=== PATIENT | female | born 1985 | race Caucasian/White ===

== ENCOUNTER 2021-03-15 15:57 | Emergency (ER) | payer BC ==
[2021-03-15 16:12] VITALS: BP 96/73; PULSE 87
--- NOTE | 2021-03-15 16:36 | EDM.PDOC ---
ED HPI GENERAL MEDICAL PROBLEM - General Chief Complaint: Fever Stated Complaint: COVID+ SOB FEVER Time Seen by Provider: 03/15/21 16:10 Source of Information: Reports: Patient, RN Notes Reviewed History Limitations: Reports: No Limitations - History of Present Illness INITIAL COMMENTS - FREE TEXT/NARRATIVE: Patient is a 35-year-old female presenting to the emergency department with complaints of fever with a known diagnosis of COVID-19. She reports that she developed symptoms of fever, loss of taste and smell, nausea, and sinus congestion on 07 March. She tested positive at that time for Covid. She has had no respiratory symptoms with the exception of some coughing which she states is caused by postnasal drip. She is denies any shortness of breath or chest pain. She states that she is "tired of dealing with a fever ". Reports T-max of 104, however she takes Tylenol and ibuprofen for fever does break. Last dose of ibuprofen, 400 mg was around noon today. She was found to be afebrile on triage. She reports that her fevers have been lower over the last couple days. T-max has been 102. She is currently breast-feeding. She did not receive the Covid vaccination. Treatments [employer]: Reports: NSAIDS - Related Data Allergies Allergy/AdvReac Type Severity Reaction Status Date / Time latex Allergy Itching Verified 03/15/21 16:12 Home Meds: Home Meds Magnesium 500 mg PO BEDTIME 07/25/20 [History] Pnv No.95/Ferrous Fum/Folic AC [ Tablet] 1 tab PO BEDTIME 07/25/20 [History] Past Medical History HEENT History: Reports: Impaired Vision Cardiovascular History: Reports: Heart Murmur FLOOR LAYER History: Reports: , Other (See Below) Other FLOOR LAYER History: D&C Psychiatric History: Reports: Depression, Other (See Below) Other Psychiatric History: depression Dermatologic History: Reports: Eczema - Infectious Disease History Infectious Disease History: Reports: Novel Coronavirus - Past Surgical History HEENT Surgical History: Reports: Oral Surgery Social & Family History - Family History HEENT: Reports: None Cardiac: Reports: Heart Murmur, Other (See Below) Other Cardiac Family History: heart disease Respiratory: Reports: None GI: Reports: None : Reports: None OBGYN: Reports: Musculoskeletal: Reports: None Neurological: Reports: Alzheimers Disease Psychiatric: Reports: None Endocrine/Metabolic: Reports: None Hematologic: Reports: None Immunologic: Reports: None Dermatologic: Reports: None Oncologic: Reports: Breast, Leukemia - Tobacco Use Tobacco Use Status *Q: Former Tobacco User Used Tobacco, but Quit: Yes Month/Year Tobacco Last Used: 07/2014 - Caffeine Use Caffeine Use: Reports: None - Recreational Drug Use Recreational Drug Use: No ED ROS GENERAL - Review of Systems Review Of Systems: See Below Constitutional: Reports: Fever, Chills, Decreased Appetite HEENT: Reports: Sinus Problem. Denies: Throat Pain Respiratory: Reports: No Symptoms. Denies: Shortness of Breath, Pleuritic Chest Pain, Cough Cardiovascular: Reports: No Symptoms. Denies: Lightheadedness Endocrine: Reports: No Symptoms GI/Abdominal: Reports: Nausea. Denies: Abdominal Pain, Diarrhea, Vomiting : Reports: No Symptoms Musculoskeletal: Reports: Other (generalized body aches) Skin: Reports: No Symptoms Neurological: Reports: No Symptoms. Denies: Confusion, Dizziness Psychiatric: Reports: No Symptoms Hematologic/Lymphatic: Reports: No Symptoms Immunologic: Reports: No Symptoms ED EXAM, GENERAL - Physical Exam Exam: See Below Exam Limited By: No Limitations General Appearance: Alert, WD/WN, No Apparent Distress Respiratory/Chest: No Respiratory Distress, Lungs Clear, Normal Breath Sounds, No Accessory Muscle Use, Chest Non-Tender Cardiovascular: Normal Peripheral Pulses, Regular Rate, Rhythm, No Edema, No Gallop, No JVD, No Murmur, No Rub GI/Abdominal: Normal Bowel Sounds, Soft, Non-Tender, No Organomegaly, No Distention, No Abnormal Bruit, No Mass Neurological: Alert, Oriented, CN II-XII Intact, Normal Cognition, Normal Gait, Normal Reflexes, No Motor/Sensory Deficits Psychiatric: Normal Affect, Normal Mood Skin Exam: Warm, Dry, Intact, Normal Color, No Rash Course - Vital Signs Last Recorded V/S: Last Vital Signs Temp 98.8 F 03/15/21 16:08 Pulse 87 03/15/21 16:08 Resp 16 03/15/21 16:08 BP 96/73 03/15/21 16:08 Pulse Ox 97 03/15/21 16:08 - Orders/Labs/Meds Orders: Active Orders 24 hr Category Date Time Status Chest 1V Frontal [CR] Stat Exams 03/15/21 16:20 Taken Labs: Laboratory Tests 03/15/21 03/15/21 Range/Units 16:30 16:30 WBC 2.78 L (3.98-10.04) K/mm3 RBC 4.07 (3.98-5.22) M/mm3 Hgb 12.0 (11.2-15.7) gm/dl Hct 36.8 (34.1-44.9) % MCV 90.4 (79.4-94.8) fl MCH 29.5 (25.6-32.2) pg MCHC 32.6 (32.2-35.5) g/dl RDW Std Deviation 41.1 (36.4-46.3) fL Plt Count 132 L (182-369) K/mm3 MPV 10.3 (9.4-12.3) fl Neut % (Auto) 39.1 (34.0-71.1) % Lymph % (Auto) 54.7 H (19.3-51.7) % [place] % (Auto) 5.4 (4.7-12.5) % Eos % (Auto) 0.4 L (0.7-5.8) Baso % (Auto) 0.4 (0.1-1.2) % Neut # (Auto) 1.09 L (1.56-6.13) K/mm3 Lymph # (Auto) 1.52 (1.18-3.74) K/mm3 [place] # (Auto) 0.15 L (0.24-0.36) K/mm3 Eos # (Auto) 0.01 L (0.04-0.36) K/mm3 Baso # (Auto) 0.01 (0.01-0.08) K/mm3 Manual Slide Review Abnormal smear Sodium 138 (136-145) mEq/L Potassium 4.3 (3.5-5.1) mEq/L Chloride 103 (98-107) mEq/L Carbon Dioxide 27 (21-32) mEq/L Anion Gap 12.3 (5-15) BUN 9 (7-18) mg/dL Creatinine 0.7 (0.55-1.02) mg/dL Est Cr Clr Drug Dosing 98.71 mL/min Estimated GFR (MDRD) > 60 (>60) mL/min BUN/Creatinine Ratio 12.9 L (14-18) Glucose 89 (70-99) mg/dL Calcium 8.1 L (8.5-10.1) mg/dL Total Bilirubin 0.4 (0.2-1.0) mg/dL AST 29 (15-37) U/L ALT 35 (14-59) U/L Alkaline Phosphatase 51 (46-116) U/L C-Reactive Protein 2.9 H* (<1.0) mg/dL Total Protein 7.1 (6.4-8.2) g/dl Albumin 3.7 (3.4-5.0) g/dl Globulin 3.4 gm/dL Albumin/Globulin Ratio 1.1 (1-2) - Re-Assessments/Exams Free Text/Narrative Re-Assessment/Exam: Patient is a 35-year-old female presenting to the emergency department with complaints of fevers with a known diagnosis of COVID-19. Denies any significant respiratory symptoms such as cough or shortness of breath. She does have some mild sinus congestion which causes postnasal drip and occasional cough. Reports decreased appetite but loss of taste and smell. Has had some mild nausea but denies any vomiting or diarrhea. Exam is unremarkable. I have ordered blood work and chest x-ray. 03/15/21 17:56 Work-up is grossly unremarkable. With the exception of WBC low at 2.78 and CRP minimally elevated at 2.9. Due to both expected findings given a known diagnosis of COVID-19. Chest x-ray shows no evidence of pneumonia. Results discussed with patient. Recommend that she continue Tylenol and ibuprofen as needed for fevers and body aches. Discussed return precautions. Discharge instructions as documented. Departure - Departure Time of Disposition: 17:57 Disposition: Home, Self-Care 01 Condition: Good Clinical Impression: COVID-19 - Discharge Information *PRESCRIPTION DRUG MONITORING PROGRAM REVIEWED*: No *COPY OF PRESCRIPTION DRUG MONITORING REPORT IN PATIENT JAYLYN: No Instructions: COVID-19 Referrals: PCP,None [Primary Care Provider] - Forms: ED Department Discharge Additional Instructions: You were seen in the emergency department today for evaluation with regards to ongoing fevers with a known diagnosis of COVID-19. Blood work and chest x-ray completed and found to be normal. Unfortunately fevers are a known part of the disease process of COVID-19. They are uncomfortable for you, you may use [id number] Tylenol and ibuprofen as needed for discomfort. Ensure that you are not taking more than 3200 mg of ibuprofen or 4000 mg of Tylenol in a given 24-hour period. Recommend rest and increased fluid intake. If you should experience any new or worsening symptoms, please do not hesitate to return to the emergency department for reevaluation. Sepsis Event Note (ED) - Focused Exam Vital Signs: Vital Signs Temp Pulse Resp BP Pulse Ox 03/15/21 16:08 98.8 F 87 16 96/73 97 - My Orders Last 24 Hours: My Active Orders 03/15/21 16:20 Chest 1V Frontal [CR] Stat - Assessment/Plan Last 24 Hours: My Active Orders 03/15/21 16:20 Chest 1V Frontal [CR] Stat
--- NOTE | 2021-03-16 10:27 | CR ---
Chest: Portable view of the chest was obtained. Comparison: No prior chest imaging is available. Note: This exam has only now submitted for final interpretation. Slight parenchymal densities are noted within the left lung base. Minimal density is suggested within the right lung base. Upper lungs are clear. Heart size and mediastinum are normal. No acute osseous finding is seen. Impression: 1. Findings suspicious for minimal COVID pneumonia within the lower lungs as noted above. Diagnostic code #3
== END 2021-03-15 18:09 | disposition home or self-care (01) ==
LOC: JD.ED 15:57
DX: U07.1 COVID-19 (principal); Z91.040 Latex allergy status; Z87.891 Personal history of nicotine dependence
CPT/HCPCS: 36415; 71045; 71045-26; 80053; 85025; 86140; 99283-25